=== PATIENT | male | born 1995 | race Caucasian/White ===

== ENCOUNTER → 2017-02-10 | Outpatient (CLI) | payer OTHER ==
--- NOTE | 2017-02-10 12:53 | KCIC ---
EXAM: Chest, 2 views. HISTORY: Cough. COMPARISON: None. FINDINGS: Frontal and lateral views of the chest are obtained. There is no infiltrate, effusion or pneumothorax. The heart is normal in size. IMPRESSION: No acute pulmonary finding. Electronically signed by: Tiara Sanchez MD (02/10/2017 12:50 PM) [place] [id number]
== END | disposition home or self-care (01) ==
LOC: KCIC 12:15
PROVIDERS: ATTEND Nurse Practitioner Family
DX: R05 Cough (principal)
CPT/HCPCS: 71020

== ENCOUNTER → 2017-08-27 | Outpatient (CLI) | payer OTHER | END | disposition home or self-care (01) | LOC: ECHO 12:36 | DX: R00.2 Palpitations (principal) | CPT/HCPCS: 93017; 93350 ==

== ENCOUNTER 2017-09-16 00:25 | Emergency (ER) | payer OTHER ==
[2017-09-16] MEDS: ONDANSETRON PF 4 MG/2 ML VIAL. IV ×2 (01:08→01:52)
[2017-09-16] MEDS: IV NORMAL SALINE 1000ML BAG 1,000 ML IV (01:08)
[2017-09-16] MEDS: fentaNYL PF VIAL 100 MCG/2 ML VIAL IV (01:08)
[2017-09-16 01:12] LABS: BASO % 0 % (0-3); EOS % 0 % (0-3); HEMATOCRIT 48.2 % (39.0-53.0); HEMOGLOBIN 17.1 g/dL (13.0-17.5); LYMPH # 2.7 x10^3/uL (1.0-4.8); LYMPH % 16 % (24-48); MEAN CORPUSCULAR HEMOGLOBIN 33 pg (25-35); MEAN CORPUSCULAR HGB CONC 36 g/dL (31-37); MEAN CORPUSCULAR VOLUME 93 fL (79-100); MONO # 0.7 x10^3/uL (0.0-1.1); MONO % 4 % (0-9); NEUT # 13.3 x10^3uL (1.8-7.7); NEUT % 80 % (31-73); PLATELET COUNT 329 x10^3/uL (140-400); RED BLOOD COUNT 5.18 x10^6/uL (4.30-5.70); RED CELL DISTRIBUTION WIDTH 12.3 % (11.5-14.5); WHITE BLOOD COUNT 16.7 x10^3/uL (4.0-11.0)
[2017-09-16 01:13] LABS: ADD MAN DIFF? YES
[2017-09-16] MEDS ORDERED: CONTRAST GIVEN MC (01:15)
[2017-09-16 01:19] LABS: ANION GAP 14 (6-14); BLOOD UREA NITROGEN 14 mg/dL (8-26); BUN/CREATININE RATIO 10 (6-20); CALCIUM 9.4 mg/dL (8.5-10.1); CARBON DIOXIDE 25 mmol/L (21-32); CHLORIDE 103 mmol/L (98-107); CREATININE 1.4 mg/dL (0.7-1.3); GLUCOSE 96 mg/dL (70-99); POTASSIUM 3.3 mmol/L (3.5-5.1); SODIUM 142 mmol/L (136-145)
[2017-09-16 01:20] LABS: BILIRUBIN,URINE NEGATIVE (NEG); CLARITY,URINE TURBID; COLOR,URINE YELLOW; GLUCOSE,URINE NEGATIVE (NEG); NITRITE,URINE NEGATIVE (NEG); PH,URINE 8.5; PROTEIN,URINE 30 mg/dL (NEG-TRACE); UROBILINOGEN,URINE 0.2 mg/dL (0.2 mg/dL)
[2017-09-16 01:24] LABS: ALBUMIN 4.8 g/dL (3.4-5.0); ALBUMIN/GLOBULIN RATIO 1.4 (1.0-1.7); ALK PHOS 50 U/L (46-116); ALT (SGPT) 29 U/L (16-63); AST (SGOT) 19 U/L (15-37); LIPASE 74 U/L (73-393); TOTAL BILIRUBIN 0.5 mg/dL (0.2-1.0); TOTAL PROTEIN 8.3 g/dL (6.4-8.2)
[2017-09-16 01:31] LABS: AMORPHOUS SEDIMENT,UR PRESENT /HPF; BACTERIA,URINE 0 /HPF (0-FEW); SQUAMOUS EPITHELIAL CELL,UR OCC /LPF; WBC,URINE 0 /HPF (0-4)
[2017-09-16] MEDS: MORPHINE SULFATE 10 MG/ML VIAL. IV ×2 (01:53→02:53)
[2017-09-16] MEDS: IOHEXOL 300 MG/ML 100ML VIAL. IV (02:00)
[2017-09-16] MEDS: TAMSULOSIN 0.4 MG CAP.ER.24H. PO (02:52)
[2017-09-16] MEDS: KETOROLAC 30 MG/ML INJ. IV (02:53)
[2017-09-16 04:53] LABS: % LYMPHS 24 % (24-48); % MONOS 2 % (0-10); % SEGS 74 % (35-66); PLT ESTIMATE ADEQUATE (ADEQUATE)
== END 2017-09-16 03:42 | disposition home or self-care (01) ==
LOC: ER 00:25
DX: N13.2 Hydronephrosis with renal and ureteral calculous obstruction (principal); F41.9 Anxiety disorder, unspecified
CPT/HCPCS: 36415; 74177; 80053; 81001; 83690; 85007; 85025; 96374; 96375; 96376; 99285-25; J1885; J2270; J2405; J3010; J7030; Q9967

== ENCOUNTER → 2017-10-18 | Outpatient (CLI) | payer OTHER | END | disposition home or self-care (01) | LOC: RAD 16:24 | DX: N20.0 Calculus of kidney (principal) | CPT/HCPCS: 74018 ==